=== PATIENT | female | born 1950 | race Two or more races ===

== ENCOUNTER 2016-11-09 14:45 | Emergency (ER) | payer SELFPAY ==
--- NOTE | ~2016-11-09 | ER ---
PATIENT'S NAME: ARASH CINTRON [facility] AGE: 66 Y [address] ROOM: [place] [address] LOCATION: [facility] ADMIT DATE: 11/09/2016 ER/Outpatient Report DISCHARGE DATE: 11/09/2016 FAMILY PHYSICIAN: PHYSICIAN, NO ATTENDING PHYSICIAN: Yarely Abraham Time of Arrival: 1451 hours. Time of Exam: 1451 hours. The patient is [place] speaking and Luz Marina the coroner transport technician was in the room with her. CHIEF COMPLAINT: Headache. HISTORY OF PRESENT ILLNESS: The patient states she is having a right-sided headache. States it is mild at this time, but has been there since noon. She has been having headaches pretty much for the past 4 weeks. She states she has felt short of breath. Does have some tingling sensation of her legs. She reports she has had decreased energy and fatigue. Denies being nauseated, has not vomited. Does not have any vision changes. Did have some chills this morning, but otherwise has not been febrile. States that she did call Dr. Frankie Lauren today because she feels as though her blood pressure medicine is causing her to have the headaches. She was started on hydralazine and hydrochlorothiazide approximately 4 weeks ago and that is when the headache started. She states she stopped taking those 2 pills this week, but she continues to have the headaches. She reports that Dr. Frankie Lauren's office said that there was not a doctor available today that they would not be able to see her until tomorrow. ALLERGIES: NO KNOWN ALLERGIES. CURRENT MEDICATIONS: On her chart and reviewed by me. PAST MEDICAL HISTORY: Hypertension and asthma. PAST SURGERIES: Negative. She reports she is postmenopausal, 11 years. SOCIAL HISTORY: Denies use of tobacco, drugs, or alcohol. PATIENT'S NAME: ARASH CINTRON [facility] AGE: 66 Y [address] ROOM: [place] [address] LOCATION: [facility] ADMIT DATE: 11/09/2016 ER/Outpatient Report DISCHARGE DATE: 11/09/2016 FAMILY PHYSICIAN: PHYSICIAN, [place] ATTENDING PHYSICIAN: Yarely Abraham REVIEW OF SYSTEMS: All negative other than those mentioned in the HPI. PHYSICAL EXAMINATION: VITAL SIGNS: She weighed 74.2 kg. Blood pressure initially was 222/104, pulse is 69, respirations 20, temperature of 97.4, and O2 saturation was 98% on room air. GENERAL: She is awake, alert, and oriented x4. She is calm and cooperative. Very talkative. SKIN: [place], warm, and dry. RESPIRATIONS: Even and nonlabored. HEENT: Her pupils are equal and reactive to light. Extraocular movements intact. Negative nystagmus. TMs are clear. Nasal is clear. Oropharynx is clear. NECK: Supple. No lymphadenopathy. LUNGS: Lung sounds were clear throughout. HEART: Regular rate and rhythm. ABDOMEN: Soft and nondistended. Bowel sounds are present. EMERGENCY DEPARTMENT COURSE: Saline lock was initiated. Lab work was drawn. CBC is within normal limits. Chem panel is within normal limits. Cardiac enzymes are negative. ProBNP was 188. D-dimer was 0.67. Did do a chest CT per PE protocol, radiologist reports it is negative. CT of the head was completed, radiologist reports it is negative. The patient was given Tylenol 1000 mg p.o. She states the headache had not changed in the ER. Her vital signs; blood pressure did come down, last one was 170/90. IMPRESSION: 1. Headache. 2. Hypertension. PLAN: Home. Rest. Fluids. Continue her current medications. Talk with Dr. Frankie Lauren regarding the hydralazine and the hydrochlorothiazide as possible alternatives if she is not willing to take those medications. Through the coroner transport technician, she verbalizes understanding. LILY OLSON APRN FOR MD SARABJIT SMITH/félix PATIENT'S NAME: ARASH CINTRON [facility] AGE: 66 Y [address] ROOM: [place] [address] LOCATION: ED ADMIT DATE: 11/09/2016 ER/Outpatient Report DISCHARGE DATE: 11/09/2016 FAMILY PHYSICIAN: PHYSICIAN, NO ATTENDING PHYSICIAN: Yarely Abraham /[id number] d: 11/10/16 0123 t: 11/15/16 1015, OUTPATIENT REPORT
[2016-11-09 15:19] LABS: BASOPHIL # 0.1 K/uL (0.0-0.2); BASOPHIL % 0.8 %; EOSINOPHIL # 0.1 K/uL (0.0-0.5); EOSINOPHIL % 1.4 %; HEMATOCRIT 39.5 % (33.0-46.0); HEMOGLOBIN 13.5 g/dL (10.0-15.0); IMMATURE GRANULOCYTE % 0.4 %; LYMPHOCYTE # 2.8 K/uL (0.8-4.0); LYMPHOCYTE % 39.1 %; MCH 31.3 pg (27.0-34.0); MCHC 34.2 gm/dL (32.0-36.5); MCV 91.6 fl (83.0-98.0); MONOCYTE # 0.6 K/uL (0.0-1.0); MONOCYTE % 8.6 %; MPV 11.3 fl (9.4-12.4); NEUTROPHIL # (ANC) 3.6 K/uL (1.8-7.8); NEUTROPHIL % 49.7 %; NRBC % 0 /100WBC (0-0.00); PLATELET COUNT 208 K/uL (150-450); RBC 4.31 M/uL (3.50-5.50); RDW-CV 11.9 % (11.9-14.6); WBC 7.2 K/uL (4.0-11.0)
[2016-11-09 15:27] LABS: INR - (THERAPEUTIC) 1.01 (0.92-1.07); PROTIME 10.6 SECONDS (9.8-11.4); PTT 28 SECONDS (25-32)
[2016-11-09 15:39] LABS: ALBUMIN 3.9 gm/dL (3.5-5.0); ALK PHOS 86 IU/L (33-138); ALT 39 IU/L (12-78); ANION GAP 10.5 (10.0-19.0); AST 30 IU/L (10-40); BLOOD UREA NITROGEN 10 mg/dL (6-24); CALCIUM 8.5 mg/dL (8.5-10.5); CHLORIDE 105 mMol/L (96-110); CO2 28 mMol/L (22-32); CPK 189 IU/L (21-215); CREATININE 0.7 mg/dL (0.5-1.1); ESTIMATED GFR (MDRD EQUATION) > 60; POTASSIUM 3.5 mMol/L (3.7-5.1); SODIUM 140 mMol/L (135-145); TOTAL BILIRUBIN 0.4 mg/dL (0.0-1.5); TOTAL PROTEIN 8.2 g/dL (6.0-8.4)
== END 2016-11-09 17:15 | disposition disaster alternative care site (69) ==
LOC: GMED 14:45
PROVIDERS: Nurse Practitioner Family
DX: I10 Essential (primary) hypertension (principal); R51 Headache; J45.909 Unspecified asthma, uncomplicated; Z79.82 Long term (current) use of aspirin; Z79.899 Other long term (current) drug therapy